=== PATIENT | female | born 1995 | race Caucasian/White ===

== ENCOUNTER → 2020-09-14 | Outpatient (CLI) | payer OTHER | LOC: COL.RAD 10:00 | DX: R19.09 Other intra-abdominal and pelvic swelling, mass and lump (principal) | CPT/HCPCS: Q9967 ==

== ENCOUNTER 2023-05-23 03:41 | Inpatient (IN) | payer OTHER ==
[~2023-05-23] VITALS: Ht 162.6 cm; Wt 81.4 kg
[2023-05-23] VITALS (18 sets, daily range): BP systolic 112–137; BP diastolic 58–93; PULSE 83–146; TEMP 97.3–98.3
--- NOTE | 2023-05-23 03:55 | NUR ---
G1L0. 39.1. Ambulatory to [facility] 4 with spouse. Clean gown on. EFM and TOCO explained and applied. Pt states she woke up to contractions at 0130 and they just have gotten more intense since then. Denies leaking of fluids or vaginal bleeding. Reports good movement. Plan of care explained to pt. 0400: SVE completed. Pt states she is wanting to attempt an unmedicated . 0445: at nurses station and updated on pt's status. See physican notification. 0455: IV started and labs obtained. [id number]: Intermittent difficutly tracing FHR due to maternal pain level and wanting to move. RN at side of bed multiple times adjusting monitors.
[2023-05-23] MEDS ORDERED: PRENATAL TABLET PO (04:08)
[2023-05-23] MEDS ORDERED: LEXAPRO 10MG10 MG PO (04:08)
[2023-05-23] MEDS ORDERED: LR 1,000 ML IV SCH (05:15)
[2023-05-23] MEDS ORDERED: LR & Oxytocin 500 ML IV SCH (05:15)
[2023-05-23 05:18] LABS: BASO % 0.2 % (0.0-2.0); EOS # 0.1 K/mm3 (0.0-0.7); EOS % 0.5 % (0.0-4.0); GRAN # 10.2 K/mm3 (1.4-6.5); GRAN % 79.5 % (42.2-75.2); HEMOGLOBIN 12.7 g/dl (12.5-16.0); LYMPH # 1.9 K/mm3 (1.2-3.4); LYMPH % 14.5 % (20.0-51.0); MEAN CELL VOLUME 88 fl (80.0-100.0); MEAN CORPUSCULAR HEMOGLOBIN 30 pg (27-31); MEAN CORPUSCULAR HGB CONC 34 g/dl (33.0-37.0); MEAN PLATELET VOLUME 11.4 fl (7.4-10.4); MONO # 0.6 K/mm3 (0.1-0.6); MONO % 4.7 % (1.7-9.3); PLATELET COUNT 217 K/mm3 (130-400); RED BLOOD COUNT 4.22 M/mm3 (4.10-5.30); REDCELL DISTRIBUTION WIDTH-CV 12.8 % (11.5-14.5)
--- NOTE | 2023-05-23 06:45 | NUR ---
UNABLE TO TRACE EFM DUE TO MATERNAL POSITION AND HABITUS, THIS RN AT PT BEDSIDE ATTEMPTING TO TRACE. PT VS STABLE, AWAKE AND ALERT X3, PT MOVING FREQUENTLY TO HELP WITH PAIN OF CONTRACTIONS.
--- NOTE | 2023-05-23 07:00 | NUR ---
UNABLE TO CONTINUEOUSLY TRACE FHR DUE TO MATERNAL POSITION AND HABITUS, THIS RN AT PT BEDSIDE ATTEMPTING TO TRACE, AUDIBLE BASELINE HEARD IN 115-120 WITH AUDIBLE EARLY DECELERATIONS WITH CONTRACTIONS EVERY 2-3 MIN. NOTIFIED OF PT STATUS.
--- NOTE | 2023-05-23 07:33 | NUR ---
0645 THIS RN AT PT BEDSIDE ATTEMPTING TO TRACE EFM, UNABLE AT THIS TIME DUE TO MATERNAL POSITION AND HABITUS. THIS RN EXPLAINING TO PT BETTER POSITIONS TO BE ABLE TO BETTER TRACE FHR. PT AUDIBLY MOANING AND MOVING WHILE STANDING UP FOR EACH CTX. PT VS STABLE, THIS RN PALPATES CONTRACTIONS Q 1.5-3 MIN LASTING 60-90SEC EACH. 0655 PT IN BED FOR CERVICAL CHECK, SVE 10/100/+3 PER THIS RN. IMMEDIATELY AFTER CHECK PT STOOD UP TO MOVE AND AMBULATE WITH CONTRACTION PAINS. 0656 PT SROM WITH THIS RN AT BEDSIDE WHILE PT STANDING, EDUCATED PT TO GET BACK IN BED FOR PT AND SAFETY. THIS RN ASKS FOR ASSISTANCE FROM CHARGE NURSE AND OTHER RNS DUE TO INFANT IN +3 STATION. 0659 THIS RN CALLS TO UPDATE HIM OF PT COMPLETE SVE. EXCLAIMS HE IS ON HIS WAY. 0710 AT PT BEDSIDE, PT LAYING BACK WITH LEGS IN STIRRUPS, ROOM SET FOR DELIVERY, BED SET FOR DELIVERY. PT EDUCATED PER AND THIS RN ON HOW TO PUSH, PT AGREES AND UNDERSTANDS. 0713 PT BEGINS PUSHING WITH CONTRACTIONS. SPOUSE SUPPORTIVE AT BEDSIDE. 0733 OF VIABLE MALE INFANT PER DR. BRANHAM, DELAYED CORD CLAMP. CORD CLAMPED AND CUT BY PT SPOUSE, INFANT PLACED ON MATERNAL CHEST AND CARE OF BABY ASSUMED BY NURSERY NURSE. 0737 OF PLACENTA PER , VAGINAL LACERATION REPAIR BEGUN WITH LOCAL LIDOCANE USED ON PERINEAL AREA PER . PITOCIN STARTED PER PROTOCOL. PT COMFORTABLE IN BED, PT VS STABLE, PT AWAKE AND ALERT X3, NO COMPLAINTS OF PAIN AT THIS TIME. ROOM CLEANED FROM DELIVERY, PT FUNDUS FIRM ONE FINGERBREATH DOWN FROM UMBILICUS, SCANT LOCHIA, NO CLOTS. ICE PAD PLACED ON PT PERINEUM
[2023-05-23] MEDS ORDERED: Loratadine 10 MG TAB PO PRN (08:00)
[2023-05-23] MEDS ORDERED: Sennosides/Docusate 8.6-50 MG TAB PO SCH (08:00)
[2023-05-23] MEDS ORDERED: Magnes Hydrox (MOM) 80 MG/ML 30 ML CUP PO PRN (08:00)
[2023-05-23] MEDS ORDERED: Phenylephrine/Mineral Oil/Petrolatum 57 GM TUBE RC PRN (08:30)
[2023-05-23] MEDS ORDERED: Measles/Mumps/Rubella Virus Vaccine Live w Diluent 0.5 ML VIAL SQ SCH (08:30)
[2023-05-23] MEDS ORDERED: Acetaminophen 500 MG TAB PO SCH (08:30)
[2023-05-23] MEDS ORDERED: Naloxone 0.4 MG/ML VIAL IV PRN (08:30)
[2023-05-23] MEDS ORDERED: Witch Hazel 50% Pads Bulk TUB TP PRN (08:30)
[2023-05-23] MEDS ORDERED: oxyCODONE 5 MG TAB PO PRN (08:30)
[2023-05-23] MEDS ORDERED: Mag/Al Hydrox/Simeth Susp 30 ML CUP PO PRN (08:30)
[2023-05-23] MEDS ORDERED: Ibuprofen 800 MG TAB PO SCH (08:30)
[2023-05-23] MEDS ORDERED: traZODone 50 MG TAB PO PRN (21:00)
[2023-05-24] MEDS ORDERED: Ibuprofen 800 MG TAB PO SCH (01:30)
[2023-05-24 01:45] VITALS: BP 119/71; PULSE 87; TEMP 97.8
[2023-05-24 07:23] VITALS: BP 114/79; PULSE 82; TEMP 98
[2023-05-24] MEDS ORDERED: IBU800 M1 PO (08:44)
[2023-05-24] MEDS ORDERED: TYLENOL 500MG500 MG PO (08:44)
== END 2023-05-24 14:25 | disposition home or self-care (01) | DRG 807 ==
LOC: LDRO 03:41 → LDR 05:05 → OB 20:40
PROVIDERS: Obstetrics & Gynecology; ADMIT Obstetrics & Gynecology
PROC: 10E0XZZ Delivery of Products of Conception, External Approach (ICD-10-PCS; principal; 2023-05-23)
PROC: 0KQM0ZZ Repair Perineum Muscle, Open Approach (ICD-10-PCS; 2023-05-23)
DX: O99.344 Other mental disorders complicating childbirth (principal); Z37.0 Single live birth; Z3A.39 39 weeks gestation of pregnancy; F41.9 Anxiety disorder, unspecified; O70.1 Second degree perineal laceration during delivery; F32.A Depression, unspecified
CPT/HCPCS: J2590; J7120